=== PATIENT | female | born 1995 | race African-American/Black ===

== ENCOUNTER → 2016-06-18 | Outpatient (CLI) | payer MEDICAID ==
[~2016-06-18] MED LIST: ALBU8I INH; PENI250T59 PO; RANI150 PO
== END ==
LOC: HPND 14:12
PROVIDERS: ATTEND Obstetrics & Gynecology
DX: O99.012 Anemia complicating pregnancy, second trimester (principal); O99.512 Diseases of the respiratory system complicating pregnancy, second trimester; Z3A.29 29 weeks gestation of pregnancy
CPT/HCPCS: 76816